=== PATIENT | male | born 1985 | race Caucasian/White ===

== ENCOUNTER 2021-07-06 17:53 | Emergency (ER) | payer MEDICAID ==
[2021-07-06] MEDS ORDERED: Aspirin 81 MG Tab.Chew PO ONE (18:05)
[2021-07-06] MEDS ORDERED: Sodium Chloride 0.9% 10 ML Syringe FLUSH PRN (18:05)
[2021-07-06] MEDS ORDERED: Sodium Chloride 0.9% 1,000 ML IV ONE (18:14)
[2021-07-06] MEDS: Nitroglycerin 0.4 MG Tab.SL SL PRN ×2 (18:15→18:20)
[2021-07-06] MEDS ORDERED: Morphine 4 MG/ML VIAL IVPUSH STA ×2 (18:16→18:21)
[2021-07-06] MEDS ORDERED: Heparin Sodium 5,000 Units/ML Vial IVPUSH ONE (18:19)
[2021-07-06] MEDS ORDERED: Nitroglycerin/D5W 25 MG/250 ML BOTTLE IV SCH (18:30)
[2021-07-06] MEDS ORDERED: Heparin Sodium/0.45% NaCl 500 ML IV SCH (18:30)
== END 2021-07-06 18:46 ==
LOC: FB.ED 17:53
DX: I21.4 Non-ST elevation (NSTEMI) myocardial infarction (principal); G35 Multiple sclerosis; K50.90 Crohn's disease, unspecified, without complications; K21.9 Gastro-esophageal reflux disease without esophagitis; Z88.8 Allergy status to other drugs, medicaments and biological substances
CPT/HCPCS: 36415; 71045; 80053; 83880; 84484; 85025; 85379; 85610; 85730; 93005; 93010; 96374; 96375; 96376; 99284; 99285-25; A9270-GY; J1644; J2270; J3490; J7030

== ENCOUNTER 2021-10-22 18:31 | Emergency (ER) | payer MEDICAID ==
[2021-10-22 19:37] LABS: ESTIMATED GFR 114 mL/min (>60)
== END 2021-10-22 20:15 | disposition home or self-care (01) ==
LOC: FB.ED 18:31
DX: I80.9 Phlebitis and thrombophlebitis of unspecified site (principal); I10 Essential (primary) hypertension; Z88.8 Allergy status to other drugs, medicaments and biological substances; Z79.899 Other long term (current) drug therapy; Z86.16 Personal history of COVID-19
CPT/HCPCS: 36415; 80048; 85025; 85379; 86140; 99282; 99283

== ENCOUNTER 2022-11-24 14:11 | Emergency (ER) | payer MEDICAID ==
[2022-11-24] MEDS ORDERED: Sodium Chloride 0.9% 10 ML Syringe FLUSH PRN (14:40)
[2022-11-24 15:07] LABS: BASOPHILS PERCENT AUTO 0.8 % (0.3-3.8); EOSINOPHILS ABSOLUTE AUTO 0.1 x10-3/uL (0.0-0.6); EOSINOPHILS PERCENT AUTO 2.8 % (0.1-6.8); HEMATOCRIT 39.5 % (38.3-50.1); HEMOGLOBIN 13.8 g/dL (12.9-17.7); LYMPHOCYTES ABSOLUTE AUTO 1.2 x10-3/uL (0.5-4.5); LYMPHOCYTES PERCENT AUTO 26.1 % (15.8-45.3); MEAN CORPUSCULAR HEMOGLOBIN 34.7 pg (27.0-33.3); MEAN CORPUSCULAR HGB CONC 34.9 g/dL (28.7-35.3); MEAN CORPUSCULAR VOLUME 99.4 fL (80.8-98.7); MEAN PLATELET VOLUME 8.5 fL (6.7-11.0); MONOCYTES ABSOLUTE AUTO 0.6 x10-3/uL (0.0-1.2); MONOCYTES PERCENT AUTO 12.7 % (5.5-15.2); NEUTROPHILS ABSOLUTE AUTO 2.6 x10-3/uL (1.7-6.9); NEUTROPHILS PERCENT AUTO 57.6 % (40.3-71.8); PLATELET COUNT,PLT 226 x10(3)uL (117-477); RED BLOOD CELL COUNT 3.98 x10(6)uL (3.90-5.90); RED CELL DISTRIBUTION WIDTH 14.1 % (12.4-15.0); WHITE BLOOD CELL COUNT,WBC 4.5 x10-3/uL (3.2-10.1)
[2022-11-24 15:09] LABS: BLOOD UREA NITROGEN,BUN 13 mg/dL (7-18); BUN/CREATININE RATIO 18.6 (9-20); CALCIUM 8.8 mg/dL (8.6-10.2); CARBON DIOXIDE,CO2 25 mmol/L (21-32); CHLORIDE,CL 104 mmol/L (100-110); CREATININE 0.7 mg/dL (0.70-1.30); EST CRCL DRUG DOSING (CG) 122.16 mL/min; ESTIMATED GFR 122 mL/min (>60); GLUCOSE RANDOM 119 mg/dL (80-116); POTASSIUM,K 4.6 mmol/L (3.5-5.3); SODIUM,NA 137 mmol/L (135-145)
[2022-11-24 15:16] LABS: A/G RATIO 1.4; ALANINE AMINOTRANSFERASE,ALT 72 U/L (12-36); ALBUMIN 3.8 g/dL (3.5-5.2); ALKALINE PHOSPHATASE 54 IU/L (56-112); ASPARTATE AMNIOTRANSFERASE,AST 46 IU/L (5-25); BILIRUBIN TOTAL 0.5 mg/dL (0.1-1.3); PROTEIN TOTAL,TP 6.5 g/dL (6.0-8.0)
[2022-11-24 15:36] LABS: BILIRUBIN,URINE NEGATIVE (NEGATIVE); GLUCOSE,URINE NORMAL (NORMAL); KETONES,URINE NEGATIVE (NEGATIVE); LEUKOCYTE ESTERASE,URINE NEGATIVE (NEGATIVE); NITRITE,URINE NEGATIVE (NEGATIVE); OCCULT BLOOD,URINE NEGATIVE (NEGATIVE); PROTEIN,URINE NEGATIVE (NEGATIVE); UROBILINOGEN,URINE NORMAL (NEGATIVE)
[2022-11-24 15:41] LABS: APPEARANCE,URINE CLEAR (CLEAR); BACTERIA,URINE OCCASIONAL (NS); COLOR,URINE YELLOW (YELLOW); RBC,URINE NOT SEEN (0-5); SQUAMOUS EPITHELIAL CELLS,UR OCCASIONAL (NS,R,O); WBC,URINE 0-5 (0-5)
[2022-11-24] MEDS: Sodium Chloride 0.9% 1,000 ML IV ONE (16:09)
== END 2022-11-24 18:26 | disposition home or self-care (01) ==
LOC: FB.ED 14:11
DX: R55 Syncope and collapse (principal); E86.0 Dehydration; R20.0 Anesthesia of skin; Z79.82 Long term (current) use of aspirin
CPT/HCPCS: 36415; 71045; 80053; 81001; 83735; 84484; 85025; 85379; 96360; 99284; J7030